=== PATIENT | female | born 1960 | race Two or more races ===

== ENCOUNTER 2023-02-27 10:50 | Emergency (ER) | payer OTHER ==
[~2023-02-27] VITALS: Ht 162.6 cm; Wt 70.8 kg
[2023-02-27] MEDS ORDERED: MOTION SICKNESS25 M1 PO (15:17)
== END 2023-02-27 15:40 | disposition home or self-care (01) ==
LOC: ER 10:50
DX: R42 Dizziness and giddiness (principal); R53.81 Other malaise